=== PATIENT | female | born 1995 | race Caucasian/White ===

== ENCOUNTER → 2017-08-16 | Outpatient (CLI) | payer OTHER ==
[~2017-08-16] MED LIST: NAPR1TAB9 PO; RIVA1TAB7 PO
== END | disposition home or self-care (01) ==
LOC: C.LABSPEC 17:35
PROVIDERS: ATTEND Podiatrist Foot & Ankle Surgery
DX: L60.0 Ingrowing nail (principal)

== ENCOUNTER → 2017-09-27 | Outpatient (CLI) | payer OTHER ==
--- NOTE | 2017-09-27 13:39 | DIAGNOSTIC IMAGING REPORT ---
R VENOUS DOPP LOWER EXT UNILAT CLINICAL HISTORY: THROMBOSIS OF RIGHT SUBCLAVIAN VEIN thromboembolism. Pain. TECHNIQUE: Venous Doppler COMPARISON STUDY: 06/16/2017 FINDINGS: Current study is within normal limits. Venous flow is unremarkable. PROCEDURE: Described subclavian thrombus has resolved/resorbed. IMPRESSION: 1. Current study shows no evidence for deep venous thrombosis. 2. Previous described deep venous thrombosis of the right subclavian vein has resolved The above report was generated using voice recognition software. It may contain grammatical, syntax or spelling errors. Electronically signed by: Bacilio Velazquez M.D. 09/27/2017 1:37 PM Dictated Date/Time: 09/27/2017 1:36 PM
== END | disposition home or self-care (01) ==
LOC: C.ULTR 12:51
PROVIDERS: ATTEND Physician Assistant
DX: I82.B11 Acute embolism and thrombosis of right subclavian vein (principal)